=== PATIENT | female | born 1945 | race African-American/Black ===

== ENCOUNTER 2016-11-19 10:51 | Inpatient (IN) | payer MEDICARE, MEDICAID ==
[~2016-11-19] VITALS: Ht 165.1 cm; Wt 52.2 kg
--- NOTE | 2016-11-19 11:15 | NUR ---
MIRANDA [facility] FOR [facility]YPERTENSION,PATIENT ALSO C/O HEADACHE. BP AT THIS TIME STABLE. 107/54. AAO4. SKIN IS WARM TO TOUCH AND NON DIAPHORETIC. AFEBRILE. VSS
[2016-11-19] MEDS ORDERED: ATEN25TA PO (11:21)
[2016-11-19] MEDS ORDERED: TRAM50TA2 PO (11:21)
[2016-11-19] MEDS ORDERED: LISI-603 PO (11:21)
[2016-11-19] MEDS ORDERED: CLON0.2T PO (11:21)
[2016-11-19] MEDS ORDERED: ZOLP10TA6 PO (11:21)
[2016-11-19] MEDS ORDERED: ACETAMINOPHEN 325 MG TABLET ONE (11:26)
[2016-11-19] MEDS ORDERED: ACETAMINOPHEN 325 MG TABLET PO ONE (11:30)
[2016-11-19 11:40] LABS: BASOPHILS # (AUTO) 0.1 /CMM (0.0-0.2); BASOPHILS % (AUTO) 2.1 % (0.0-2.0); EOSINOPHILS % (AUTO) 0.6 % (0.0-6.0); HEMATOCRIT 32 % (33-45); HEMOGLOBIN 10.6 g/dL (11.5-14.8); LYMPHOCYTES % (AUTO) 15.1 % (20.0-44.0); MEAN CORPUSCULAR HEMOGLOBIN 34 PG (26.0-33.0); MEAN CORPUSCULAR HGB CONC 34 g/dl (31.0-36.0); MEAN CORPUSCULAR VOLUME 101 fL (82-100); MONOCYTES # (AUTO) 0.4 /CMM (0.1-1.30); MONOCYTES % (AUTO) 6.3 % (2.0-12.0); NEUTROPHILS # (AUTO) 5.4 /CMM (1.8-8.9); NEUTROPHILS % (AUTO) 75.9 % (43.0-81.0); PLATELET COUNT (AUTO) 234 /CMM (150-450); RDW COEFFICIENT OF VARIATION 17.4 (11.5-15.0); RED BLOOD CELL COUNT(AUTO) 3.13 MIL/uL (4.0-5.2); WHITE BLOOD COUNT (AUTO) 6.9 K/uL (4.3-11.0)
[2016-11-19 11:45] LABS: CALCIUM, SERUM 8.5 mg/dL (8.5-10.1); POTASSIUM 3.7 mmol/L (3.5-5.1)
--- NOTE | 2016-11-19 13:48 | NUR ---
Deb figueroa in [facility] - 11/19/16 at 1413 by MARLI TRIED GIVING REPORT BUT RECEIVING NURSE IS ON BREAK
--- NOTE | 2016-11-19 13:58 | NUR ---
IV ACCESSED TO RIGHT HAND 20
--- NOTE | 2016-11-19 14:04 | NUR ---
REPORT GIVEN TO KALYANI GLASER FOR KELY
--- NOTE | 2016-11-19 14:15 | NUR ---
PT TRANSPORTED TO [facility]. [facility]
--- NOTE | 2016-11-19 14:45 | NUR ---
Tele/RN - Admission Pt received from ER admitted to Telemetry with Dx Bradycardia. Pt alert and oriented x3. On tele reading SB 44. Ambulatory with steady gait. Continent. IV patent and intact. Oriented pt to room and updated on plan of care. Safety and comfort measures in place. Will continue to monitor pt closely.
[2016-11-19 15:03] VITALS: BP 101/63
--- NOTE | 2016-11-19 15:25 | NUR ---
Tele/RN - Notes Received admitting orders from Dr Moon. Will carry out.
[2016-11-19 16:00] VITALS: BP 100/58
[2016-11-19] MEDS ORDERED: ZOLPIDEM TARTRATE 10 MG TABLET PO PRN ×2 (16:00→16:30)
[2016-11-19] MEDS: IV NS 0.9% 1,000 ML IV PRN (16:06)
[2016-11-19] MEDS: LISINOPRIL (20MG) 20 MG TABLET PO SCH (16:06)
--- NOTE | 2016-11-19 16:06 | NUR ---
Tele/RN - Notes Tramadol not administered at this time. Pt does not complain of pain.
[2016-11-19] MEDS ORDERED: TRAMADOL HCL 50 MG TABLET PO SCH (17:00)
[2016-11-19 20:00] VITALS: BP 134/73
[2016-11-19] MEDS: TRAMADOL HCL 50 MG TABLET PO PRN (21:16)
[2016-11-19] MEDS: ZOLPIDEM TARTRATE 5 MG TABLET PO PRN (22:07)
[2016-11-20] VITALS (7 sets, daily range): BP systolic 146–176; BP diastolic 73–93
[2016-11-20 05:49] LABS: BASOPHILS % (AUTO) 0.3 % (0.0-2.0); EOSINOPHILS # (AUTO) 0.1 /CMM (0.0-0.7); HEMATOCRIT 31 % (33-45); HEMOGLOBIN 10.4 g/dL (11.5-14.8); LYMPHOCYTES # (AUTO) 2.1 /CMM (0.8-4.8); LYMPHOCYTES % (AUTO) 33.9 % (20.0-44.0); MEAN CORPUSCULAR HEMOGLOBIN 34 PG (26.0-33.0); MEAN CORPUSCULAR HGB CONC 33 g/dl (31.0-36.0); MEAN CORPUSCULAR VOLUME 102 fL (82-100); MONOCYTES # (AUTO) 0.5 /CMM (0.1-1.30); MONOCYTES % (AUTO) 8.1 % (2.0-12.0); NEUTROPHILS # (AUTO) 3.5 /CMM (1.8-8.9); NEUTROPHILS % (AUTO) 55.7 % (43.0-81.0); PLATELET COUNT (AUTO) 234 /CMM (150-450); RDW COEFFICIENT OF VARIATION 18.4 (11.5-15.0); RED BLOOD CELL COUNT(AUTO) 3.07 MIL/uL (4.0-5.2); WHITE BLOOD COUNT (AUTO) 6.2 K/uL (4.3-11.0)
[2016-11-20 06:05] LABS: ALBUMIN 2.9 g/dL (3.4-5.0); BILIRUBIN,TOTAL 0.8 mg/dL (0.2-1.0); CALCIUM, SERUM 8.5 mg/dL (8.5-10.1); CREATININE 1.1 mg/dL (0.6-1.3); POTASSIUM 3.7 mmol/L (3.5-5.1); TOTAL PROTEIN, SERUM 6.5 g/dL (6.4-8.2)
[2016-11-20 06:18] LABS: THYROID STIMULATING HORMONE 1.073 uIU/mL (0.358-3.74)
--- NOTE | 2016-11-20 07:40 | NUR ---
RN NOTES RECEIVED PT FROM [employer] IN BED RESTING. A&OX3, ON ROOM AIR NO DISTRESS. SINUS RUSSELL ON THE TELE MONITOR, LOWEST HR DURING THE [employer] WAS 38. RFA IV SITE 20 GAUGE DRY AND INTACT. FLUIDS RUNNING AT 50ML/HR. BED LOCKED AND IN LOWEST POSITION, CALL LIGHT WITHIN REACH, SIDE RAILS UPX3. WILL CONT TO MONITOR.
[2016-11-20] MEDS: LISINOPRIL (20MG) 20 MG TABLET PO SCH ×2 (08:14→17:14)
[2016-11-20] MEDS: TRAMADOL HCL 50 MG TABLET PO PRN ×2 (08:14→21:43)
[2016-11-20] MEDS: NIFEdipine XL (30MG) 30 MG TAB PO SCH (13:18)
--- NOTE | 2016-11-20 18:37 | NUR ---
RN NOTES PT IN STABLE CONDITION HAVING DINNER IN BED. NO SOB OR DISTRESS NOTED. IVF STILL RUNNING, IV SITE DRY AND INTACT. NO SIGNIFICANT CHANGES THROUGHOUT MY SHIFT. CALL LIGHT WITHIN REACH, SIDE RAILS UP, BED IN LOWEST POSITION. WILL ENSURE TO ONCOMING SHIFT.
--- NOTE | 2016-11-20 20:00 | NUR ---
RN NOTES RECEIVED PATIENT IN BED. NO RESPIRATORY DISTRESS OR SHORTNESS OF BREATH. BREATHING EVEN AND UNLABORED. ON ROOM AIR,TOLERATING WELL WITH 02SAT OF 100%. ALERT AND ORIENTED. ABLE TO VERBALIZE NEEDS. COMPLAINED OF GENERAL PAIN, ULTRAM GIVEN WITH RELIEF. KEPT CLEAN AND DRY WILL CONTINUE TO MONITOR.
[2016-11-20] MEDS: DOXAZOSIN MESYLATE (1 MG) 1 MG TABLET PO SCH (21:43)
[2016-11-20] MEDS: IV NS 0.9% 1,000 ML IV PRN (21:54)
[2016-11-21] MEDS: ZOLPIDEM TARTRATE 5 MG TABLET PO PRN ×2 (00:53→21:30)
[2016-11-21 04:00] VITALS: BP 146/83
--- NOTE | 2016-11-21 06:46 | NUR ---
RN CLOSING NOTES RESTING COMFORTABLY IN BED WITH NO RESPIRATORY DISTRESS OR SHORTNESS OF BREATH. BREATHING EVEN AND UNLABORED. NO COMPALINT OF PAIN OR DISCOMFORT. ALERT AND ORIENTED. AMBULATORY. KEEPS GETTING OUT OF BED AND GOING OUT OF THE ROOM. NO SIGNIFICANT CHANGE OF CONDITION. WILL ENDORSE TO AM SHIFT FOR CONTINUITY OF CARE.
[2016-11-21] MEDS: NIFEdipine XL (30MG) 30 MG TAB PO SCH (08:21)
[2016-11-21] MEDS: LISINOPRIL (20MG) 20 MG TABLET PO SCH ×2 (08:22→17:03)
[2016-11-21 13:22] VITALS: BP 182/95
[2016-11-21] MEDS: SOD FERRIC GLUC 125 MG in IV NS 0.9% 100 ML IV SCH (14:45)
--- NOTE | 2016-11-21 19:52 | NUR ---
RN NOTES RECEIVED PATIENT WALKING AROUND THE DIETZ, STEADY GAIT. NO DISTRESS NOTED. BREATHING EVEN AND UNLABORED. ALERT AND ORIENTED. NO SIGN OR SYMPTOM OF PAIN OF THIS TIME. WILL CONTINUE TO MONITOR.
[2016-11-21 20:00] VITALS: BP 173/94
[2016-11-21] MEDS: DOXAZOSIN MESYLATE (1 MG) 1 MG TABLET PO SCH (21:29)
[2016-11-21] MEDS: TRAMADOL HCL 50 MG TABLET PO PRN (21:29)
[2016-11-21] MEDS: IV NS 0.9% 1,000 ML IV PRN (21:30)
[2016-11-22 04:00] VITALS: BP 159/90
--- NOTE | 2016-11-22 06:31 | NUR ---
RN CLOSING NOTES PATIENT IN BED, NO DISTRESS, BREATHING EVEN AND UNLABORED. NO SIGNIFICANT CHANGE OF CONDITION. SLEPT FOR 8 HOURS. CHANGED IV SITE FROM LEFT HAND TO RIGHT HAND. WILL ENDORSE TO AM SHIFT FOR CONTINUITY OF CARE.
--- NOTE | 2016-11-22 07:37 | NUR ---
RN NOTES RECEIVED PT ON BED RESTING COMFORTABLY. ON ROOM AIR NO SOB OR DISTRESS NOTED. LEFT HAND IV SITE DRY AND INTACT, IVF RUNNING AT 50ML/HR. NO SIGNS OF DISTRESS NOTED AT THIS TIME. WILL CONT TO MONITOR.
[2016-11-22 08:00] VITALS: BP 159/90
[2016-11-22] MEDS: LISINOPRIL (20MG) 20 MG TABLET PO SCH ×2 (09:00→16:13)
[2016-11-22] MEDS: TRAMADOL HCL 50 MG TABLET PO PRN (09:01)
[2016-11-22] MEDS: NIFEdipine XL (30MG) 30 MG TAB PO SCH (09:01)
[2016-11-22] MEDS: SOD FERRIC GLUC 125 MG in IV NS 0.9% 100 ML IV SCH (14:19)
[2016-11-22 16:00] VITALS: BP 139/80
--- NOTE | 2016-11-22 18:34 | NUR ---
RN NOTES PT RESTING COMFORTABLY IN BED. NO SOB OR DISTRESS NOTED. TOLERATING MEDICATIONS THROUGHOUT THE DAY. NO SIGNIFICANT CHANGES. ALL NEEDS MET. CALL LIGHT WITHIN REACH, SIDE RAILS UPX3, BED LOCKED AND IN LOWEST POSITION. WILL ENDORSE TO ONCOMING SHIFT.
[2016-11-22 20:00] VITALS: BP 163/84
[2016-11-22 21:00] VITALS: BP 163/84
[2016-11-22] MEDS: DOXAZOSIN MESYLATE (1 MG) 1 MG TABLET PO SCH (21:31)
[2016-11-22] MEDS: ZOLPIDEM TARTRATE 5 MG TABLET PO PRN (21:32)
[2016-11-23] MEDS: TRAMADOL HCL 50 MG TABLET PO PRN ×2 (03:52→17:49)
[2016-11-23 04:00] VITALS: BP 168/83
--- NOTE | 2016-11-23 06:52 | NUR ---
RN NOTE PT REMAINS IN NO ACUTE DISTRESS IN BED. PT DID NOT HAVE ANY SIGNIFICANT CHANGE IN CONDITION DURING SHIFT. ALL NEEDS MET ALL ORDERS CARRIED OUT. WILL ENDORSE CARE TO AM RN FOR CONTINUITY OF CARE.
--- NOTE | 2016-11-23 07:59 | NUR ---
RN NOTES RESTING PT RESTING IN BED COMFORTABLY, AWAKE ALERT ORIENTED TO IMMEDIATE NEEDS. NO RESPIRATORY DISTRESS OR SHORTNESS OF BREATH. BREATHING EVEN AND UNLABORED. NO COMPLAINT OF PAIN OR DISCOMFORT. ON IV SL AT THIS TIME, PER REPORT PT KEEPS GETTING OUT OF BED AND GOING TO THE BATHROOM AND OUT OF THE ROOM. REMINDED PT TO USE CALL LIGHT WHEN ASSISTANCE IS NEEDED. FREQUENT VISUAL CHECKS MADE. SAFETY MAINTAINED, CALL LIGHT WITHIN REACH, WILL CONT TO MONITOR
[2016-11-23 08:00] VITALS: BP 155/78
[2016-11-23] MEDS ORDERED: NIFEdipine XL (30MG) 30 MG TAB PO SCH (09:00)
[2016-11-23] MEDS: LISINOPRIL (20MG) 20 MG TABLET PO SCH ×2 (10:20→16:39)
[2016-11-23] MEDS: SOD FERRIC GLUC 125 MG in IV NS 0.9% 100 ML IV SCH (15:13)
--- NOTE | 2016-11-23 15:39 | NUR ---
RN NOTES CALLED [facility], REPORT GIVEN TO LANDON AUGUSTE. ETA AMBULANCE IS 4PM
[2016-11-23 16:00] VITALS: BP_SYST 133; BP_SYST 157; BP_DIAS 44; BP_DIAS 78; BP_DIAS 86
[2016-11-23 20:00] VITALS: BP 158/89
--- NOTE | 2016-11-23 20:20 | NUR ---
ms rn note patient picked up by ambulance with all belongings. instructed patient on discharge instructions. All papers given to EMT. ID BAND AND IV removed. patient is stable.
== END 2016-11-23 20:27 | DRG 309 ==
LOC: ER 10:54 → TELE1 14:04 → MEDSG1 11-20 15:52
PROVIDERS: ADMIT Internal Medicine Nephrology; ATTEND Internal Medicine Nephrology
DX: R00.1 Bradycardia, unspecified (principal); E44.1 Mild protein-calorie malnutrition; I10 Essential (primary) hypertension; Z68.1 Body mass index [BMI] 19.9 or less, adult; T44.7X5A Adverse effect of beta-adrenoreceptor antagonists, initial encounter; D50.9 Iron deficiency anemia, unspecified; Z86.73 Personal history of transient ischemic attack (TIA), and cerebral infarction without residual deficits; M19.90 Unspecified osteoarthritis, unspecified site; R55 Syncope and collapse; T46.5X5A Adverse effect of other antihypertensive drugs, initial encounter; Y92.009 Unspecified place in unspecified non-institutional (private) residence as the place of occurrence of the external cause; Z73.6 Limitation of activities due to disability; E78.5 Hyperlipidemia, unspecified; R79.89 Other specified abnormal findings of blood chemistry; R93.1 Abnormal findings on diagnostic imaging of heart and coronary circulation
CPT/HCPCS: 36415; 80048-TC; 80053-TC; 80061-TC; 82728-TC; 82746; 83540-TC; 84443-TC; 84484-TC; 85025-TC; 85652-TC; 87040-TC; 87081-TC; 93307-TC; 93880-TC; A4606; J2916; J7030; Z7610